=== PATIENT | male | born 1995 ===

== ENCOUNTER 2024-03-11 14:48 | Emergency (ER) | payer SELFPAY ==
--- NOTE | ~2024-03-11 | XR_ITS ---
XR chest 1V Ordering provider: Anand Barlow PA-C History: 28 years Male with . L chest pain . Comparison: None. FINDINGS: MEDIASTINUM: The cardiac silhouette is not enlarged. LUNGS: No effusions or pneumothorax. Opacification the left lung base seen medially suggestive of pne umonia versus atelectasis. OTHER: No free air under the diaphragm. IMPRESSION: Left basal pneumonia. Clinical correlation advised. Reviewed, dictated and finalized at location A. [facility] [employer]
[2024-03-11 14:51] VITALS: BP 129/75; PULSE 112; RESP 22; TEMP 37.2; O2SAT 99
--- NOTE | 2024-03-11 14:51 | ECG_ITS ---
Test Date: 2024-03-11 14:56:57 Measurements Intervals [place] Rate: 112 P: 39 NM: 139 QRS: 5 QRSD: 92 T: 36 QT: 301 QTc: 411 Interpretive Statements SINUS TACHYCARDIA POOR R-WAVE PROGRESSION ABNORMAL ECG Electronically Signed On 03-11-2024 17:27:26 [employer] by Robin Gipson M.D.
--- NOTE | 2024-03-11 16:35 | ED.CHESTPAIN ---
HPI - Chest Pain General Chief Complaint: Chest Pain Stated Complaint: cp with deep breath or movement Focused HPI: GENERAL: Well-appearing, well-nourished, and in no acute distress. HEAD: Normocephalic, atraumatic. CHEST: Clear to auscultation. No respiratory distress. HEART: Regular rate and rhythm. NEURO: Alert and oriented x3. Patient screened in triage and initial orders placed. Additional care and disposition to be based upon diagnostic testing and treatment. Source: patient Mode of arrival: ambulatory Limitations: no limitations Course Vital Signs Vital signs: Vital Signs Temperature 99 F 03/11/24 14:51 Pulse Rate 112 H 03/11/24 14:51 Respiratory Rate 22 H 03/11/24 14:51 Blood Pressure 129/75 03/11/24 14:51 Pulse Oximetry 99 03/11/24 14:51 Oxygen Delivery Room Air 03/11/24 14:51 Temperature 99 F 03/11/24 14:51 Pulse Rate 112 H 03/11/24 14:51 Respiratory Rate 22 H 03/11/24 14:51 Blood Pressure 129/75 03/11/24 14:51 Pulse Oximetry 99 03/11/24 14:51 Oxygen Delivery Room Air 03/11/24 14:51 Discharge Plan Discharge Patient Language: Arabic Follow-up/Referrals: PHYSICIAN NOT ON STAFF,NONSTAFF [Primary Care Provider] -
[2024-03-11 20:04] LABS: Basophils Percent Auto 0.2 % (0.2-1.2); Eosinophils Absolute Auto 0.1 K/mm3 (0-0.3); Eosinophils Percent Auto 1.2 % (0-4.4); Hematocrit 49.7 % (42.0-52.0); Hemoglobin 17.4 g/dL (14.0-18.0); Immature Granulocyte Absolute 0.08 K/mm3 (0.00-0.031); Immature Granulocyte Percent A 0.8 % (0-0.5); Lymphocytes Percent Auto 6.2 % (18.3-44.2); Mean Corpuscular Hemoglobin 30.4 pg (26-34); Mean Corpuscular Volume 86.7 fl (80-100); Mean Platelet Volume 10.6 fl (7.4-10.4); Monocytes Absolute Auto 0.6 K/mm3 (0.1-0.6); Monocytes Percent Auto 5.8 % (2.6-8.5); Neutrophils Absolute Auto 8.2 K/mm3 (1.3-6.7); Neutrophils Percent Auto 85.8 % (45.5-73.1); Platelet Count Result 245 k/mm3 (150-375); Red Blood Count 5.73 M/mm3 (4.6-6.20); Red Cell Distribution Width 13.1 % (11.5-14.5); White Blood Count 9.6 K/mm3 (4.5-10.0)
[2024-03-11 20:16] LABS: Alanine Aminotransferase 52 U/L (6-50); Albumin Level 4.6 g/dL (3.5-5.1); Alkaline Phosphatase 69 U/L (38-126); Anion Gap 7 mmol/L (4-12); Aspartate Amino Transferase 34 U/L (17-59); Bilirubin,Total 0.8 mg/dL (0.2-1.3); Blood Urea Nitrogen 9 mg/dL (9-20); CRP 2.5 mg/dL (<1.0); Calcium 8.9 mg/dL (8.4-10.2); Carbon Dioxide 26 mmol/L (22-30); Chloride 103 mmol/L (98-107); Estimated CRCL calculation 125 ml/min; Estimated Glomerular Filt Rate > 60; Glucose 109 mg/dL (65-110); Potassium 3.5 mmol/L (3.4-5.0); Sodium 136 mmol/L (137-145)
[2024-03-11 20:25] LABS: Troponin I < 0.012 ng/mL (0.000-0.034)
== END 2024-03-12 01:01 | disposition left against medical advice (07) ==
LOC: ANHED 03-12 00:03
PROVIDERS: Emergency Provider Physician Assistant
DX: R07.1 Chest pain on breathing (principal); R00.0 Tachycardia, unspecified
CPT/HCPCS: 36415; 71045; 80053; 84484; 85025; 86140; 93005; 99284